=== PATIENT | male | born 1995 | race Caucasian/White ===

== ENCOUNTER 2020-07-04 08:10 | Outpatient (RCR) | payer BC, SELFPAY ==
[2020-07-04] MEDS: COVID-19 VACC, MRNA(PFIZER)/PF 30 MCG/0.3 ML SYRINGE IM (14:06)
[2020-07-25] MEDS: COVID-19 VACC, MRNA(PFIZER)/PF 30 MCG/0.3 ML SYRINGE IM (13:10)
== END 2020-08-21 23:59 ==
LOC: IMMUN 08:10
PROVIDERS: Referring Provider Family Medicine; Visit Provider Family Medicine
DX: Z23 Encounter for immunization (principal)
CPT/HCPCS: 0001A; 0002A; 91300

== ENCOUNTER 2021-04-22 14:49 | Outpatient (CLI) | payer BC, SELFPAY | END 2021-04-22 23:59 | disposition home or self-care (01) | LOC: IMMUN 04-23 14:49 | PROVIDERS: Referring Provider Family Medicine; Visit Provider Family Medicine | DX: Z23 Encounter for immunization (principal) ==